=== PATIENT | female | born 1930 | race Caucasian/White ===

== ENCOUNTER → 2016-07-22 | Outpatient (CLI) | payer OTHER, MEDICARE ==
[~2016-07-22] VITALS: Ht 157.5 cm; Wt 62.1 kg
[~2016-07-22] MED LIST: ALEVE220 MG PO; AMITRIPTYLINE H10 M3 PO; ASPIR 8181 MG PO; CALCIUM 500 +1 EAC5 PO; COZAAR 25 MG TA25 MG PO; FAMCICLOVIR250 MG PO; KEPPRA XR750 MG PO; SIMVASTATIN20 MG PO
--- NOTE | ~2016-07-22 | HPC ---
[facility] [address] [place] [address] PAIN MANAGEMENT CONSULTATION Name: LORNA HECTOR ELOISA Room #: REG Michelle Shannon.#: [id number] Admission: 07/22/16 Attend Phys: Carl Torres DO Discharge: Date of : 31 Report #: [id number] THIS REPORT FOR: //name// CC: TYRONE Torres DATE OF SERVICE: 07/23/2016 HISTORY OF PRESENT ILLNESS: The patient is a pleasant 86-year-old female seen in consultation at the request of Dr. Supa Gregorio for evaluation of pain in left axilla, upper arm, lateral breast. The patient notes she has light touch pain including bra significantly exacerbates pain. It has been present for about 4 weeks. She noted no skin changes, but states pain is continuous, throbbing, tender and rates it at "10" on a 0-10 visual analog scale. Any light touch contact exacerbates pain, nothing in particular seem to help. REVIEW OF SYSTEMS: Complete review of systems attached to chart is gone over with the patient. She is , seen in the company of her who is very supportive. History of longstanding epilepsy, well treated by Dr. Daryn Cuellar, she has been stable on Keppra XR 750 mg. History of hypertension, treated with losartan. Does have some dyslipidemia for which she takes simvastatin. PAST SURGICAL HISTORY: Includes hysterectomy in the distant past. SOCIAL HISTORY: The patient has been retired for 30 years. Pain impact score is quite high, averaging 8 9 for all indices queried other than walking and relationships with other people. PHYSICAL EXAMINATION: GENERAL: Reveals a pleasant 5 feet 2 inches, 137 pounds female, blood pressure is 137/73, pulse 76, respirations of 16. BMI is 25.1 kilograms per meter squared. NEUROLOGIC: Cranial nerves 2-12 are grossly intact. HEENT: Pupils equal, reactive to light and accommodation. Extraocular muscles are intact. NECK: Cervical range of motion is full. Thyroid is unremarkable. HEART: Regular and rhythmical without murmur. LUNGS: Shows some course rhonchi. MUSCULOSKELETAL: Very severe hyperpathia, allodynia about medial aspect of the left arm, axilla and lateral aspect of the left breast and upper chest wall. She has significant tenderness in the left trapezius and deltoid. Slight decreased range of motion left arm secondary to pain. I detect no axilla nor epitrochlear lymph nodes. She does have some thoracic kyphosis, again no skin changes noted. Hand grasp is symmetric, Tinel's is negative. Biceps, triceps, [facility] [address] [place] [address] PAIN MANAGEMENT CONSULTATION Name: LORNA HECTOR ELOISA Room #: REG TIMOTHY Chaves#: [id number] Admission: 07/22/16 Attend Phys: Carl Torres DO Discharge: Date of : 31 Report #: [id number] brachioradialis reflexes are preserved. ABDOMEN: Shows a modestly endomorphic build. EXTREMITIES: Gait is tandem. Lower extremity strength is preserved. DIAGNOSTIC STUDIES: There are no diagnostic studies available for evaluation at this time. ASSESSMENT: Symptomatic chest wall pain, neuropathic pain, acute herpetic zoster sans lesions. RECOMMENDATIONS: 1. Thoracic epidural injection for the T2-T3 distribution accomplished today. 2. We will start the patient on Elavil 10 mg 1-2 at bedtime to help with neuropathic pain and insomnia is secondary to pain. Also, assuming this is herpetic zoster sans lesion etiology, Elavil may help decrease the likelihood of chronic postherpetic neuralgia. 3. Lastly, after consideration I have elected to start the patient on Famvir 250 mg 3 times a day for 7 days. Again, I think the downside of using this is fairly small and assuming this is a residual of herpetic outbreak, this may afford some efficacy. Thank you for allowing me to participate in the patient's care. She is in bit of a diagnostic dilemma, clearly has neuropathic-mediated pain, etiology is little obscured. We will perform a thoracic epidural injection today. Medication change as noted above. Follow up in 1-2 weeks for reevaluation. I will be happy to keep you abreast of your progress. PROCEDURE: Thoracic epidural injection under fluoroscopy. PROCEDURE NOTE: After written and informed consent was obtained including risk of dural puncture, spinal cord trauma, paralysis and increased pain, the patient was taken to the fluoroscopy suite and placed in the prone position, with appropriate abdominal bolstering, neck was flexed, palms under the thighs. Skin was prepped with ChloraPrep. Sterile draping was applied. Skin wheal with 1% Xylocaine was raised. A 22-gauge 3-1/2 inch epidural Tuohy needle was placed via a midline approach at the T2-T3 interspace, advanced under biplanar fluoroscopy using continuous loss of resistance. With appropriate loss of resistance at the expected depth on lateral view, the glass loss of resistance syringe was disconnected. A low volume extension tubing was connected to the needle and a 5 mL syringe. Negative aspiration for cerebrospinal fluid or blood was noted. A 1 mL of Omnipaque was injected which showed spread within the epidural space on biplanar fluoroscopy. This was followed with 80 mg of triamcinolone plus 1 mL of 1.5% preservative Xylocaine. Needle was withdrawn to the interspinous ligament, 0.5 mL of Xylocaine was used to flush the needle. The needle was then completely withdrawn. The area was cleansed. Band-Aid was [facility] [address] [place] [address] PAIN MANAGEMENT CONSULTATION Name: LORNA HECTOR ELOISA [id number] Admission: 07/22/16 Attend Phys: Carl Torres DO Discharge: Date of : 31 Report #: [id number]. The patient was allowed to move off the procedure table and ambulated to the recovery room, monitored for an appropriate period of time, discharged in good and stable condition. <ELECTRONICALLY SIGNED> By: Carl Torres DO 07/23/16 1138 0721 1018 Carl Torres DO /nt
[2016-07-22 11:09] VITALS: BP 137/73
== END ==
LOC: PAIN 07:00
DX: G58.8 Other specified mononeuropathies (principal); R07.89 Other chest pain; B02.8 Zoster with other complications; Z90.710 Acquired absence of both cervix and uterus

== ENCOUNTER → 2016-08-12 | Outpatient (CLI) | payer OTHER, MEDICARE ==
[~2016-08-12] VITALS: Ht 157.5 cm; Wt 62.8 kg
--- NOTE | ~2016-08-12 | HPC ---
[facility] [address] [address] PAIN MANAGEMENT CONSULTATION Name: LORNA HECTOR ELOISA Room #: REG Michelle Shannon.#: [id number] Admission: 08/12/16 Attend Phys: Carl Torres DO Discharge: Date of : 31 Report #: [id number] THIS REPORT FOR: //name// CC: Cliff Torres The patient is an 86-year-old female seen in consultation on 07/22/2016, diagnosed with chest wall pain, thoracic radiculopathy and neuropathic pain, suggestion of herpes zoster sans lesions. The patient was given a short course of Famvir 250 mg t.i.d. for 7 days, which she completed. We started the patient on Elavil 10 mg 1-2 at bedtime. She took two at night with significant sedation dropped to one at night, still had sedation and has discontinued altogether. I did a thoracic epidural injection at T2-T3 with overall about 50% improvement of baseline pain. She returns to pain clinic today noting pain remains problematic with light touch allodynia in the axilla, medial aspect of the left upper arm, somewhat into the breast and in L3 distribution. PHYSICAL EXAMINATION: Otherwise relatively unchanged. Vital signs stable as noted in the EMR. Cervical range of motion is full. Upper extremity strength is generally preserved with slight triceps decreased strength in the left, although deep tendon reflexes of the biceps, triceps, and brachioradialis are symmetric. Hand grasp is symmetric. Tinel's is negative. She does have some light touch allodynia in the medial aspect of the left upper arm and along the lateral mid axillary line, superior aspect of the thoracic chest wall. Pain in to the adnexa, and lateral aspect of the breast and radiating towards the scapula. Cervical range of motion does not change her pain. ASSESSMENT: Thoracic radiculopathy by clinical exam. History of component of neuropathic pain. The patient is stable on Keppra for prior seizure disorder. RECOMMENDATIONS: After discussion with the patient today, we have elected to repeat thoracic epidural injection today, I have written for an MRI of the thoracic spine to be obtained next week. If this injection does not afford adequate relief, we will follow up after the MRI if needed. If this injection today affords good relief, have the patient simply cancel this. If needed, we may start the patient on another membrane stabilizing agent, (gabapentin?). Thank you for allowing me to participate in this patient's care. PROCEDURE: Thoracic epidural injection under fluoroscopy. DESCRIPTION OF PROCEDURE: After written and informed consent was obtained including risk of dural puncture, spinal cord trauma, paralysis and increased pain, the patient was taken to the fluoroscopy suite and placed in the prone position, with appropriate abdominal bolstering, neck was flexed, [place] [address] PAIN MANAGEMENT CONSULTATION Name: LORNA HECTOR ELOISA Room #: REG TIMOTHY Chaves#: [id number] Admission: 08/12/16 Attend Phys: Carl Torres DO Discharge: Date of : 31 Report #: [id number] the thighs. Skin was prepped with ChloraPrep. Sterile draping was applied. Skin wheal with 1% Xylocaine was raised. A 22-gauge 3-1/2 inch epidural Tuohy needle was placed via a midline approach at the T2-T3 interspace, advanced under biplanar fluoroscopy using continuous loss of resistance. With appropriate loss of resistance at the expected depth on lateral view, the glass loss of resistance syringe was disconnected. A low volume extension tubing was connected to the needle and a 5 mL syringe. Negative aspiration for cerebrospinal fluid or blood was noted. A 1 mL of Omnipaque was injected which showed spread within the epidural space on biplanar fluoroscopy. This was followed with 80 mg of triamcinolone plus 1 mL of 1.5% preservative Xylocaine. Needle was withdrawn to the interspinous ligament, 0.5 mL of Xylocaine was used to flush the needle. The needle was then completely withdrawn. The area was cleansed. Band-Aid was applied. The patient was allowed to move off the procedure table and ambulated to the recovery room, monitored for an appropriate period of time, discharged in good and stable condition. <ELECTRONICALLY SIGNED> By: Carl Torres DO 08/13/16 0704 1216 1605 Carl Torres DO /nt
[2016-08-12 10:48] VITALS: BP 129/74
== END | disposition home or self-care (01) ==
LOC: PAIN 07:04
DX: M54.14 Radiculopathy, thoracic region (principal)

== ENCOUNTER → 2016-08-20 | Outpatient (CLI) | payer OTHER, MEDICARE | LOC: MRI 10:20 | DX: M47.892 Other spondylosis, cervical region (principal); M47.894 Other spondylosis, thoracic region ==

== ENCOUNTER → 2016-08-27 | Outpatient (CLI) | payer OTHER, MEDICARE ==
[~2016-08-27] VITALS: Ht 157.5 cm; Wt 62.1 kg
--- NOTE | ~2016-08-27 | HPC ---
[facility] [address] [facility] [place] [address] PAIN MANAGEMENT CONSULTATION Name: LORNA HECTOR ELOISA Room #: REG TIMOTHY Chaves#: [id number] Admission: 08/27/16 Attend Phys: Carl Torres DO Discharge: Date of : 31 Report #: [id number] THIS REPORT FOR: //name// CC: Cliff Torres HISTORY OF PRESENT ILLNESS: The patient is a very pleasant 86-year-old female, initially seen on 07/22/2016, diagnosed with chest wall pain, cervical radiculopathy, acute herpetic zoster sans lesions. The patient was treated with Famvir, Elavil at bedtime, and given a thoracic epidural injection. She was seen in followup 08/12/2016, with incremental improvement of 50%. We repeated the injection at that time. I did order a thoracic MRI. The patient returns to pain clinic today. Please note the pain is fairly nominal perhaps at 2/10. She states she simply have some light touch allodynia in the tricep area of the left arm. I reviewed the MRI from 08/20/2016. It notes moderate lower cervical spondylosis with slight subluxation of C7 on T1, likely degenerative in nature, mild mid thoracic degenerative changes. No focal disk protrusion was noted in the thoracic spine. ASSESSMENT: Symptomatic chest wall pain, herpetic neuralgia, with component of cervical radiculopathy at C7. RECOMMENDATION: We talked today about therapeutic options. Presently, I do think she warrants any interventional therapy and patient agrees. We consider cervical epidural injection for the residual C7 distribution pain, but presently again she is doing reasonably well. She takes p.r.n. Aleve and really no other pain medicines. PHYSICAL EXAMINATION: Otherwise shows 86-year-old female, BMI is 25.1 kilograms per meter squared, does not use tobacco products. Vital signs are stable as noted in the EMR. Cervical range of motion is full. Light touch allodynia in the left triceps and little bit into the axilla, but pain is modest. She rates this objectively 2 on a 0-10 visual analog scale. RECOMMENDATIONS: Follow up simply as needed. <ELECTRONICALLY SIGNED> By: Carl Torres DO 08/30/16 0749 1204 1852 Carl Torres DO /nt
[2016-08-27 10:59] VITALS: BP 131/72
== END ==
LOC: PAIN 07:29
DX: M47.22 Other spondylosis with radiculopathy, cervical region (principal)

== ENCOUNTER 2019-01-25 08:59 | Day surgery (SDC) | payer OTHER, MEDICARE ==
[~2019-01-25] VITALS: Ht 157.5 cm; Wt 59.6 kg
[~2019-01-25 08:59] MED LIST changes: +CALCIUM 600 +1 EAC1 PO; +KEPPRA 500 MG500 M1 PO; +LOSARTAN-HCTZ1 EAC3 PO
[2019-01-25 09:37] LABS: HEMATOCRIT 41.7 % (37.0-47.0); HEMOGLOBIN 13.5 gm/dL (12.0-15.0)
[2019-01-25 10:00] VITALS: BP 152/78
[2019-01-25 10:06] LABS: CALCIUM 10.1 mg/dL (8.5-10.1); CREATININE 1.5 mg/dL (0.6-1.0); POTASSIUM 3.7 mmol/L (3.5-5.1)
[2019-01-25] MEDS ORDERED: NORCO 5-325 TA1 EAC1 PO (12:04)
[2019-01-25 12:18] VITALS: BP 152/78
--- NOTE | 2019-01-25 12:54 | EKG ---
[address] [address] ELECTROCARDIOGRAM REPORT Name: LORNA HECTOR Room #: 150-6 [facility] M..#: [id number] Admission: 01/25/19 Attend Phys: Diomedes Aleman MD Discharge: Date of : 31 Report #: [id number] THIS REPORT FOR: //name// [facility] Test Date: 2019-01-25 Test Time: 09:44:17 Pat Name: LORNA HECTOR Department: Room: 150 6 Gender: F Behavioral Therapy Coordinator: SARAH : 1930 Requested By: Diomedes Aleman Order Number: [id number] MD: Markel Bland Measurements Intervals Thornton Rate: 73 P: 26 AR: 158 QRS: -16 QRSD: 101 T: QT: 407 QTc: 449 Interpretive Statements Sinus rhythm Probable inferior infarct, age indeterminate Consider anterior infarct Lateral leads are also involved Compared to ECG 08/05/1992 21:32:00 Myocardial infarct finding now present Ventricular premature complex(es) no longer present ST (T wave) deviation no longer present Electronically Signed On 01-25-2019 12:54:11 CDT by Markel Bland [email or web address] <ELECTRONICALLY SIGNED> By: Markel Bland MD 01/25/19 1254 0944 0944 Markel Bland MD /EPI
--- NOTE | 2019-01-29 13:46 | PATH ---
[facility] [address] [address] [place] [address] PATHOLOGY RPT PROCEDURE Name: LORNA HECTOR Room #: DEP [facility] M.R.#: [id number] Admission: 01/25/19 Date of : 31 Discharge: 01/25/19 Report #: [id number] Path Case #: [id number] [facility] Accession Number: [id number] . 01 Material submitted: . leg - RIGHT LOWER LEG SUTURE BAZZI SUPERIOR LATERAL MARGIN - FS. Modifiers: right, lower . 02 Frozen section diagnosis: . FROZEN SECTION DIAGNOSIS: (Dr. Arielle Vera) FSA1 and FSA2. Skin, right lower leg lesion, excision: - Negative for invasive carcinoma at 3:00 to 9:00 margins. . These findings are discussed with Dr. Diomedes Aleman in OR 1 at [facility] and a written report is placed in the patient's chart. (IUV:pit; 01/25/2019) . FROZEN SECTION GROSS DESCRIPTION: - The specimen is received fresh from the OR labeled with the patient's name, and "right lower leg lesion, suture bazzi superior lateral margin 11:00", and consists of an oriented ellipse of skin measuring approximately 5.0 x 2.0 x 0.3 cm. The suture is designated 11:[address] Aleman. The specimen is further inked as follows: The 12:00 to 6:00, including the deep margin, is inked black, the 6:00 to 9:00 is inked blue, including the deep margin, and the 9:00 to 12:00 is inked green, including the deep margin. At this point the specimen is serially sectioned and the margins from 3:00 to 9:00 along with the lesion are assessed for frozen section in FSA1 and FSA2. These are subsequently submitted for permanent sections as A1 and A2. The remainder of the specimen is submitted in entirety in A3 and A4 for permanent sections only. (IUV:pit; 01/25/2019) . Frozen section performed at [facility], [address] , [place] [address]. IZV/QTP . 02 Diagnosis: Skin and subcutaneous tissue, "right lower leg lesion", excision: - SQUAMOUS CELL CARCINOMA; MARGINS FREE OF CARCINOMA. (CLW:armin; 01/26/2019) S 01/26/2019 1135 Local . 02 Electronically signed: . Daly Mcginnis MD, Pathologist NPI- [id number] . 01 [facility] [address] [place] [address] PATHOLOGY RPT PROCEDURE Name: LORNA HECTOR Room #: DEP SD Anastacio#: [id number] Admission: 01/25/19 Date of : 31 Discharge: 01/25/19 Report #: [id number] Path Case #: [id number] Gross description: . SEE GROSS DESCRIPTION DICTATED BY THE PATHOLOGIST. /QMS 01/26/2019 1133 Local . 02 Pathologist provided ICD-10: C44.722 . 02 CPT . 679193, 326434, 923433 Specimen Comment: A courtesy copy of this report has been sent to Specimen Comment: [phone], . Specimen Comment: Report sent to / DR TATUM Performed at: 01 [facility] [id number] [address], [place] [id number] MD Velasquez Ho MD Phone: [phone] Performed at: [address] [id number] MD Arielle Vera MD Phone: [phone]
--- NOTE | 2019-03-13 12:03 | O ---
[facility] [address] [address] OPERATIVE REPORT Name: LORNA HECTOR Room #: DEP [facility] M.R.#: [id number] Admission: 01/25/19 Attend Phys: Diomedes Aleman MD Discharge: 01/25/19 Date of : 31 Report #: [id number] THIS REPORT FOR: //name// CC: Supa Aleman PREOPERATIVE DIAGNOSIS: Right danielle lesion consistent with skin cancer. POSTOPERATIVE DIAGNOSIS: Right danielle lesion, frozen section margins negative and lesion consistent with squamous cell carcinoma. PROCEDURE PERFORMED: Excision of right danielle lesion with a 2.5 x 6 cm ellipse and elevation of skin flap for primary closure. SURGEON: Diomedes Aleman MD ANESTHESIA: IV sedation, local 0.25% Marcaine. COMPLICATIONS: None. ESTIMATED BLOOD LOSS: 5 mL. DESCRIPTION OF PROCEDURE: With the right leg prepped and draped in a sterile fashion, timeout was performed. The patient did receive IV antibiotics. Skin was then anesthetized with 0.25% Marcaine after she was sedated. An ellipse was drawn around the lesion. The lesion was irregular raised nodular lesion with some redness. The excision encompassed the reddish area and also a clear margin. The ellipse measured 6 cm in the craniocaudad direction and 2.5 cm transversely. The incision carried through the full thickness skin and subcutaneous tissue. A suture was placed on the superior and lateral margin. Specimen was given to Pathology to analyze the area that is closest to the lesion for margin analysis. The pathologist did evaluate frozen section. Margins were clear. There did appear to be a squamous cell in the middle of the specimen. The skin was elevated mediolaterally off of the fascia. This allowed mobilization of the skin. The skin was then closed with 4-0 nylon in interrupted fashion. Antibiotic ointment, Telfa, 4 x 4, OpSite used for dressing. The patient tolerated the procedure well. <ELECTRONICALLY SIGNED> By: Diomedes Aleman MD 03/13/19 1203 1253 1322 Diomedes Aleman MD /nt
== END 2019-01-25 13:10 | disposition home or self-care (01) ==
LOC: OR 08:59 → TBA 09:03 → OR 13:10
PROVIDERS: Surgery
DX: L98.8 Other specified disorders of the skin and subcutaneous tissue (principal); C44.722 Squamous cell carcinoma of skin of right lower limb, including hip; I10 Essential (primary) hypertension; E78.00 Pure hypercholesterolemia, unspecified; Z90.710 Acquired absence of both cervix and uterus; Z98.890 Other specified postprocedural states; Z79.899 Other long term (current) drug therapy; Z88.8 Allergy status to other drugs, medicaments and biological substances; Z79.82 Long term (current) use of aspirin
CPT/HCPCS: 50010; 50101; 50386; 50403; 56526; 62110; 62850; 70005

== ENCOUNTER → 2020-12-23 | Outpatient (CLI) | payer OTHER, MEDICARE ==
[~2020-12-23] MED LIST changes: +NORCO 5-325 TA1 EAC1 PO
== END ==
LOC: CAT 13:13
PROVIDERS: ATTEND Internal Medicine
DX: K76.89 Other specified diseases of liver (principal); I25.10 Atherosclerotic heart disease of native coronary artery without angina pectoris